=== PATIENT | female | born 1980 | race Caucasian/White ===

== ENCOUNTER 2019-06-18 15:52 | Outpatient (CLI) | payer BC ==
[2019-06-18] VITALS (9 sets, daily range): BP systolic 111–144; BP diastolic 58–85
[~2019-06-18] VITALS: Ht 167.6 cm; Wt 70.3 kg
--- NOTE | ~2019-06-18 | D ---
[facility] [place] [address] DISCHARGE SUMMARY Name: GARLAND ARRINGTON Room #: DEP PATRICIA Zhao#: [id number] Admission: 06/18/19 Attend Phys: Michael Ozuna MD, Discharge: 06/19/19 Date of : 78 Report #: [id number] THIS REPORT FOR: //name// CC: Michael Montes DO DATE OF SERVICE: 06/18/2019 HOSPITAL COURSE: The patient is a 39-year-old female who was having an accelerating anginal pattern. She was seen in the office with some equivocal EKG ____ had 2 episodes of rest pain the prior day. No documented coronary artery disease, but long time tobacco and family history. Her LDL was 92. She subsequently was admitted and taken to the catheterization lab. There was mild LAD disease. The RCA had moderate disease with 40% lesions and then a distal circ OM which had a significant distribution had a long eccentric lesion of 90%. I successfully dilated and stented this with a 2.5 x 15 Resolute Curtis drug-eluting stent, postdilated to 2.7 mm in size, JEET grade 3 flow, no dissection or thrombus formation. Heparin and Integrilin were utilized and then Effient has been initiated. Also, currently on atorvastatin 40, prasugrel 10, losartan 50, Toprol 25, depending on her heart rate will also be discharge medications. She will be on a full aspirin for a month and back down to a baby aspirin. No lifting for 48 hours. No lying in tub, Jacuzzi or oscar for a week. No MRI or dental work for 3 months. DISCHARGE DIAGNOSES: 1. Coronary artery disease with successful urgent percutaneous coronary artery stent of a distal circumflex lesion. Moderate right coronary disease. We will follow. 2. Hypertension. 3. Hypercholesterolemia. 4. Tobacco abuse. Thank you for asking me to assist in the care of this patient. By: 0623 0703 /nt
--- NOTE | 2019-06-18 19:30 | NUR ---
PATIENT ARRIVED POST CARDIAC FUMIGATOR AND STERILIZER AT 1800. ALERT AND ORIENTED. ON ROOM AIR. TELE MONITOR PLACED. FLUIDS STARTED PER ORDERS. RIGHT GROIN SITE C/D/I, POST CARDIAC CARE WITH VS STARTED PER ORDERS. HEMOSTASIS 1740. PT EDUCATED TO KEEP LEG STRAIGHT FOR 3 HOURS. HOB AT 30 DEGREES. DINNER OFFERED. DENIES CHEST PAIN, DENIES SOB. CALL LIGHT IN REACH. REPORTED OFF TO NIGHT NURSE.
[2019-06-18] MEDS ORDERED: PROAIR HFA8.5 GM INH (20:00)
[2019-06-18] MEDS ORDERED: AIMOVIG AU70 MG/1 ML SUBQ (20:01)
[2019-06-18] MEDS ORDERED: METAXALONE800 MG PO (20:05)
[2019-06-18] MEDS ORDERED: ZANTAC 150MG T150 M1 PO (20:06)
[2019-06-19 00:01] VITALS: BP 115/65
[2019-06-19 04:45] VITALS: BP 106/59
--- NOTE | 2019-06-19 06:56 | NUR ---
ASSUMMED PT CARE AT 1900, PT ALERT AND ORIENTEDX4, ASSESSMENTS CHARTED, VITAL SIGNS STABLE, SINUS RHYTHM ON THE MONITOR, RIGHT GROIN SITE INTACT, WILL CONTINUE TO MONITOR
[2019-06-19] MEDS ORDERED: LIPITOR40 MG PO (07:42)
[2019-06-19] MEDS ORDERED: EFFIENT10 MG PO (07:42)
[2019-06-19] MEDS ORDERED: ASPIRIN325 PO (07:42)
[2019-06-19] MEDS ORDERED: TOPROL XL25 MG PO (07:45)
[2019-06-19] MEDS ORDERED: CHANTIX1 EACH PO (07:48)
[2019-06-19 08:20] VITALS: BP 99/59
[2019-06-19 08:25] VITALS: BP 99/59
[2019-06-19 08:31] VITALS: BP 99/59
[2019-06-19 08:55] LABS: HEMATOCRIT 38.3 % (37.0-47.0); HEMOGLOBIN 12.6 gm/dL (12.0-15.0); MCH 29.3 pg (26.0-34.0); MCV 88.9 fL (80.0-100.0); RBC 4.31 mil/uL (4.20-5.00); RDW 12.2 % (10.5-14.5); WBC 6.9 thou/uL (4.0-11.0)
[2019-06-19 09:09] LABS: ALBUMIN 3.4 g/dL (3.4-5.0); ANION GAP 6 mmol/L (7-16); BUN 12 mg/dL (7-18); CALCIUM 8.4 mg/dL (8.5-10.1); CHLORIDE 106 mmol/L (98-107); CO2 28 mmol/L (21-32); CREATININE 0.8 mg/dL (0.6-1.0); GLUCOSE 115 mg/dL (74-106); POTASSIUM 3.9 mmol/L (3.5-5.1); SGOT 24 U/L (15-37); SGPT 26 U/L (30-65); SODIUM 140 mmol/L (136-145); TOTAL BILIRUBIN 0.3 mg/dL (<0.1-1.0); TOTAL PROTEIN 6.6 g/dL (6.4-8.2); TROPONIN-I <0.06 ng/mL (<0.06)
--- NOTE | 2019-06-19 11:01 | NUR ---
ASSUMED CARE 0700, A/OX4, VITALS SIGNS STABLE, DENIES SOB, DENIES CHEST PAIN, RIGHT GROIN SITE C/D/I. REVIEWED POST CATH SITE CARE WITH PATIENT, PATIENT DC HOME WITH SELF CARE, REVIEWED DC PAPERS AND NEW MEDS. IV AND TELE REMOVED PRIOR TO DC.
--- NOTE | 2019-06-19 14:27 | EKG ---
[place] [address] [address] [facility] [place] [address] ELECTROCARDIOGRAM REPORT Name: GARLAND ARRINGTNO Room #: DEP PATRICIA Zhao#: [id number] Admission: 06/18/19 Attend Phys: Michael Ozuna MD, Discharge: 06/19/19 Date of : 78 Report #: [id number] THIS REPORT FOR: //name// [facility] Test Date: 2019-06-19 Test Time: 07:24:30 Pat Name: GARLAND ARRINGTON Department: Room: 207 P Gender: F Room Service Food Server: Anirudh PEREZ : 1980 Requested By: Michael Ozuna Order Number: [id number] MD: Santy Pang Measurements Intervals Gary Rate: 66 P: 37 MT: 130 QRS: 61 QRSD: 106 T: 40 QT: 426 QTc: 447 Interpretive Statements Sinus rhythm No previous ECG available for comparison Electronically Signed On 06-19-2019 14:27:14 [employer] by Santy Pang [email or web address] <ELECTRONICALLY SIGNED> By: Santy Pang MD 06/19/19 1427 723 3 Santy Pang MD /VU
--- NOTE | 2019-06-25 13:23 | CATHLAB ---
[facility] [address] [place] [address] INVASIVE PROCEDURE REPORT Name: GARLAND ARRINGTON Room #: BILL Zhao#: [id number] Admission: 06/18/19 Attend Phys: Michael Ozuna, Discharge: 06/19/19 Date of : 78 Report #: [id number] THIS REPORT FOR: //name// APPROVED REPORT Study performed: 06/18/2019 16:05:02 Patient Details Patient Status: In-Patient Room #: The patient is a 39 year-old female Event Personnel Michael Ozuna Insurance Loss Control Surveyor, Gómez Abarca RN, Radha, Esther Monitor, Cesar Welch RTR Scrub Procedures Performed Art Access - R femoral artery* 21807 Initial Mod Sed Same Phys/QHP Gr5y 323808 73824 Mod Sed Same Phys/QHP Ea 180733 Left Heart Cath w/or w/o Coronaries [id number] [facility] Place w/wo Plasty Single CIRC 115631 Aortogram Abdominal Peripheral Angio 711678 Hemostasis w/ Mynx Indication Chest pain Procedure Narrative The patient was brought electively to the Cardiac Catheterization Laboratory and was prepped and draped in a sterile manner. The Right Groin^ was infiltrated with 1% Lidocaine subcutaneous anesthesia. A PINNACLE 6FR Sheath #[id number] sheath was inserted into the RFA^. Coronary angiography was performed using coronary diagnostic catheters. The right coronary system was accessed and visualized with a JR 4 catheter. The left coronary system was accessed and visualized with a JL 4 catheter. The left ventricle was accessed and visualized with a [employer] catheter. Left ventriculogram was performed in WADE projection. An aortogram of the abdominal aorta was performed. Closure device was deployed with a 6 Fr Mynx. The patient tolerated the procedure well and there were no complications associated with the procedure. There was no hematoma. Intraoperative Conscious Sedation Sedation start time: 16:44 Case end Time: 17:27 Fentanyl 100 mcg Versed [address] [address] INVASIVE PROCEDURE REPORT Name: GARLAND ARRINGTON Room #: [facility] CALIFORNIAPorfirioPorfirio#: [id number] Admission: 06/18/19 Attend Phys: Michael Ozuna, Discharge: 06/19/19 Date of : 78 Report #: [id number] Fluoro Time: 6.43 minutes Dose: DAP 5744.00 cGycm2 804 mGy Contrast Type and Amount: Omnipaque 155 ml Hemodynamics The aortic pressure is 153/78 mmHg with a mean of 105 mmHg. The left ventricular pressure is 196/-1 mmHg with a mean of mmHg. The left ventricular end diastolic pressure is 9 mmHg. PCI Technique Lesion Percutaneous coronary intervention was performed on the mid circumflex artery segment. A LAUNCHER 6FR EBU 3.5 #[id number] Guide Catheter was used to engage the ostium. A Luge Wire .014 x 182CM #[id number] Interventional Guidewire was used to cross the lesion. BALLOON DILATION A Balloon catheter RESOLUTE BAL OTW 2.5 X 15 #[id number] was inserted and inflated up to 12.00atm for 42seconds. Additional Inflation: 14.00atm for 21seconds. Conclusion #1 successful PTCA stent of distal circumflex long stenosis of 90% to 0% placement of a 2.5 x 15 mm resolute medicated stent 0% residual JEET grade 3 flow #2 left main with mild disease giving rise to LAD and circumflex. #3 the LAD is mild proximal calcification with mild diffuse disease it extends around the apex. Diagonal system moderate proximal disease #4 dominant right coronary artery with mild diffuse disease relatively small in caliber. #5 normal left ventricular size and systolic function EF 55-60% #6 abdominal aorta is intact no aneurysm single bilateral renal arteries widely patent Conditions and plan: Patient did well post intervention. Resolution of chest pain and EKG changes. IC nitroglycerin was given to rule out spasm. This was a very eccentric lesion in the distal circumflex but definitely real. Patient transferred hemodynamically stable and pain-free to CCU to follow post stent protocol. <ELECTRONICALLY SIGNED> By: Michael Ozuna MD, [facility] 06/25/19 1322 21 21 Michael Ozuna MD, FACC /INF
== END 2019-06-19 11:08 | disposition home or self-care (01) ==
LOC: CATH 15:52 → 2N 18:39 → CATH 06-19 11:08
PROVIDERS: Internal Medicine Cardiovascular Disease
DX: R07.9 Chest pain, unspecified (principal); I25.10 Atherosclerotic heart disease of native coronary artery without angina pectoris; I10 Essential (primary) hypertension; E78.00 Pure hypercholesterolemia, unspecified; Z98.890 Other specified postprocedural states; Z79.82 Long term (current) use of aspirin; Z79.899 Other long term (current) drug therapy; Z98.51 Tubal ligation status; Z87.891 Personal history of nicotine dependence; Z88.0 Allergy status to penicillin
CPT/HCPCS: 10081

== ENCOUNTER → 2020-08-01 | Outpatient (CLI) | payer BC, OTHER ==
[~2020-08-01] MED LIST: AIMOVIG AU70 MG/1 ML SUBQ; ASPIRIN325 PO; CHANTIX1 EACH PO; EFFIENT10 MG PO; LIPITOR40 MG PO; METAXALONE800 MG PO; PROAIR HFA8.5 GM INH; TOPROL XL25 MG PO; ZANTAC 150MG T150 M1 PO
== END ==
LOC: SJCVCIMAG 11:21
PROVIDERS: ATTEND Internal Medicine Cardiovascular Disease
DX: I25.10 Atherosclerotic heart disease of native coronary artery without angina pectoris (principal); I10 Essential (primary) hypertension; E78.5 Hyperlipidemia, unspecified; Z98.61 Coronary angioplasty status